=== PATIENT | male | born 1985 | race Caucasian/White ===

== ENCOUNTER 2019-06-01 06:26 | Emergency (ER) | payer SELFPAY ==
[2019-06-01 07:21] LABS: #Basophils 0.1 thou/uL (0.0-0.2); #Eosinphils 0.2 thou/uL (0.0-0.7); #Lymphocytes 2.6 thou/uL (1.20-3.40); #Monocytes 0.7 thou/uL (0.11-0.59); #Neutrophils 7.7 thou/uL (1.40-6.50); %Basophils 0.9 % (0.0-1.0); %Lymphocytes 22.8 % (21.0-51.0); %Monocytes 6.5 % (0.0-10.0); %Neutrophils 67.8 % (42.0-75.0); Hemoglobin 15.9 g/dL (14.0-18.0); Mean Corpuscular HGB CONC 32.4 g/dL (32.0-36.0); Mean Corpuscular Hemoglobin 30.1 pg (27.0-31.0); Mean Corpuscular Volume 93.1 fL (78.0-98.0); Mean Platelet Volume 6.6 fL (7.4-10.4); Platelet Count 375 thou/uL (130-400); RBC Distribution Width 12.6 % (11.5-14.5); Red Blood Cell (RBC) Count 5.26 mill/uL (4.70-6.10); White Blood Cell (WBC) Count 11.4 thou/uL (4.8-10.8)
[2019-06-01 07:35] LABS: ALT (SGPT) 38 U/L (8-55); AST (SGOT) 22 U/L (5-34); Albumin 4.2 g/dL (3.5-5.0); Alcohol Less than 10 mg/dL (Less than 10); Alkaline Phosphatase 71 U/L (40-110); Anion Gap 13 mmol/L (10-20); BUN (Urea Nitrogen) 12 mg/dL (8.9-20.6); Bilirubin, Total 0.6 mg/dL (0.2-1.2); Calc. Creatinine Clearance 0 mL/min (70-130); Calcium 9.7 mg/dL (7.8-10.44); Carbon Dioxide 27 mmol/L (22-29); Chloride 105 mmol/L (98-107); Estimated GFR-MDRD 81; Globulin 2.8 g/dL (2.4-3.5); Glucose 96 mg/dL (70-105); Potassium 4.3 mmol/L (3.5-5.1); Sodium 141 mmol/L (136-145)
[2019-06-01 08:29] LABS: Bilirubin Negative (Negative); Blood, Urine Negative (Negative); Clarity Clear (Clear); Glucose, Urine (Dipstick) Negative (Negative); Leukocyte Negative (Negative); Nitrite Negative (Negative); Protein, Urine (Dipstick) Negative (Neg-Trace); Urobilinogen 0.2 mg/dL (Less than 2)
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
[2019-06-01 08:37] LABS: Amphetamine Detected (NotDetected); Barbiturates Screen Not Detected (NotDetected); Benzodiazepine Screen Detected (NotDetected); Cocaine Metabolite Screen Not Detected (NotDetected); Medtox Control Line Valid? VALID (VALID); Methadone Not Detected (NotDetected); Methamphetamine Detected (NotDetected); Opiate Screen Not Detected (NotDetected); Oxycodone Screen Not Detected (NotDetected); Phencyclidine (PCP) Not Detected (NotDetected); THC/Cannabinoid Screen Not Detected (NotDetected); Tricyclic Screen Not Detected (NotDetected)
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
[2019-06-01] MEDS ORDERED: Ketorolac Tromethamine 30 MG/ML VIAL ONE (08:55)
[2019-06-01] MEDS ORDERED: Ondansetron PF 4 MG/2 ML Vial ONE (08:56)
[2019-06-01] MEDS ORDERED: Morphine 2 MG/ML SYRINGE ONE (08:56)
[2019-06-01] MEDS ORDERED: Adacel (T-DAP) 0.5 ML SYRINGE ONE (08:57)
[2019-06-01] MEDS ORDERED: Bacitracin 1 PK ONE (08:57)
[2019-06-01] MEDS ORDERED: Iopamidol 370 76% 100 ML VIAL ONE (09:00)
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
== END 2019-06-01 09:45 | disposition home or self-care (01) ==
LOC: NAV ERS 06:26
DX: T23.201A Burn of second degree of right hand, unspecified site, initial encounter (principal); S00.12XA Contusion of left eyelid and periocular area, initial encounter; N28.1 Cyst of kidney, acquired; J34.1 Cyst and mucocele of nose and nasal sinus; J32.9 Chronic sinusitis, unspecified; J45.909 Unspecified asthma, uncomplicated; F41.9 Anxiety disorder, unspecified; F17.210 Nicotine dependence, cigarettes, uncomplicated; Z23 Encounter for immunization; V69.9XXA Occupant (driver) (passenger) of heavy transport vehicle injured in unspecified traffic accident, initial encounter
CPT/HCPCS: 70450; 70486; 71045; 71260; 72125; 72131; 74177; 80053; 80306; 80307; 81003; 85025; 90471; 90715; 96374; 96375; J1885; J2270; J2405; Q9967